=== PATIENT | male | born 1960 | race Caucasian/White ===

== ENCOUNTER 2019-04-20 06:32 | Day surgery (SDC) | payer OTHER ==
[~2019-04-20] VITALS: Ht 175.3 cm; Wt 80.3 kg
[~2019-04-20 06:32] MED LIST: PANT40TA4 PO
[2019-04-20 07:36] VITALS: Ht 175.3 cm; Wt 80.3 kg
[2019-04-20 07:40] VITALS: BP 123/85; PULSE 67; RESP 17
[2019-04-20] MEDS ORDERED: MIDAZOLAM 1 MG/ML 2 ML INJ ONE ×2 (08:54)
[2019-04-20] MEDS ORDERED: FENTAnyl 50 MCG/ML VIAL ONE (08:54)
[2019-04-20 09:22] VITALS: BP 106/74; PULSE 68; RESP 18
--- NOTE | 2019-04-22 13:19 | CONS ---
DATE OF ADMISSION: 04/20/2019 DATE OF CONSULTATION: PATIENT NAME: HAMILTON ALMENDAREZ TYPE OF CONSULTATION: Preoperative gastroenterology. Dear Dr. Judd and Dr. Dixon: I thank you very much for this kind referral. HISTORY OF PRESENT ILLNESS: Mr. Hamilton Almendarez is a 59-year-old male patient who has been referred to [facility] for further evaluation because of abnormal PET/CT scan with abnormality in the stomach. The patien t has lymphoma, for which he has received radiation and chemotherapy. The patient is in remission. He underwent abdominal PET/CT scan and he was noted to have some abnormality in the stomach. The rep ort is not available at the present time. He is known to have had gastritis. He has been taking jackson toprazole. He denies any history of upper abdominal pain, nausea or vomiting. Appetite is good. No weight loss. The patient had a screening colonoscopy 2 years ago and no colon neoplasm was identifi ed. No history of gallstones or liver disease. Not a hypertensive or diabetic. No heart disease, l pat problem or kidney disease. SOCIAL HISTORY: Nonsmoker. No alcohol abuse. FAMILY HISTORY: The patient has history of stomach cancer in the family. FAMILY ALLERGIES: NO DRUG ALLERGIES. MEDICATIONS: Pantoprazole. PHYSICAL EXAMINATION: GENERAL: He is 5 feet 9 inches tall and weighs 175 pounds. HEART: Normal heart sounds. LUNGS: Clear. ABDOMEN: Soft, no masses. Normal bowel sounds. NEUROLOGIC: Normal neurological exam. IMPRESSION: 1. Status post radiation and chemotherapy for lymphoma. 2. The patient underwent abdominal PET/CT scan and he was told that he had some abnormality in the s tomach. The report is not available at the present time. 3. History of gastritis. 4. The patient is on pantoprazole. 5. Status post appendectomy. 6. Patient's mother had stomach cancer. PLAN: 1. Continue pantoprazole. 2. Would obtain PET/CT scan report. 3. Endoscopy for further evaluation. The procedure and possible complications are well explained to the patient. He understands and conse nts to the procedure. I thank you once again. With warmest personal regards, Dictated By: SACHA SHERWOOD/EV Conf#: [id number] DID#: [id number]
== END 2019-04-20 10:53 | disposition home or self-care (01) ==
LOC: GIL 06:32
PROVIDERS: ATTEND Internal Medicine Gastroenterology
DX: K29.30 Chronic superficial gastritis without bleeding (principal)
CPT/HCPCS: 43239; 88305; 88312; J2250; J3010; Z7610